=== PATIENT | male | born 1940 | race Caucasian/White ===

== ENCOUNTER 2016-05-17 10:30 | Inpatient (IN) ==
[2016-05-25 13:05] LABS: Basophils # (Auto) 0 K/mcL (0.0-0.3); Basophils % (Auto) 0.6 % (0.0-2.0); Eosinophils # (Auto) 0.2 K/mcL (0.0-0.7); Eosinophils % (Auto) 2.2 % (0.0-7.0); Granulocytes % (Auto) 67.1 % (38.0-78.0); Lymphocytes # (Auto) 1.4 K/mcL (1.5-4.8); Lymphocytes % (Auto) 20.8 % (15.5-49.0); Mean Cell Volume 94.2 fL (80.0-100.0); Mean Corpuscular HGB Conc 35.3 g/dL (31.0-36.0); Mean Corpuscular Hemoglobin 33.2 pg (26.0-34.0); Monocytes # (Auto) 0.6 K/mcL (0.1-0.9); Monocytes % (Auto) 9.3 % (1.0-9.0); Platelet Count 207 K/mcL (140-440); RBC 4.95 M/mcL (4.50-5.90); Red Cell Distribution Width 12.2 % (11.5-14.5)
[2016-05-25 13:28] LABS: Blood Urea Nitrogen 23 mg/dl (8-23)
[2016-05-25 15:29] LABS: Appearance,Urine CLEAR; Bacteria,Urine 0 /hpf (0); Bilirubin,Urine NEG (NEG); Color,Urine YELLOW; Glucose,Urine (UA) NEGATIVE (NEG); Leukocyte Esterase,Urine NEG /uL (NEG); Mucus,Urine FEW /hpf (0); Nitrate,Urine NEG (NEG); Protein,Urine 100 mg/dL (NEG); Specific Gravity,Urine 1.014 (1.000-1.035); Urine Blood NEG mg/dL (<0.03); Urine RBC 2 /hpf (0-1); Urine Squamous Epithelial Cell 0 /hpf (0-4); Urine Transitional Epi Cells < 1 /hpf (0-2); Urine WBC 0 /hpf (0-4); Urobilinogen,Urine NEG (NEG)
[2016-05-31] MEDS ORDERED: oxyCODONE 10 MG TAB.ER.12H PO SCH (05:00)
[2016-05-31] MEDS ORDERED: CELECOXIB 200 MG CAPSULE PO SCH (05:00)
[2016-05-31] MEDS ORDERED: PREGABALIN 150 MG CAPSULE PO SCH (05:00)
[2016-05-31] MEDS ORDERED: CLINDAMYCIN 900 MG in DEXTROSE 5% IN WATER 50 ML IV SCH (06:30)
[2016-05-31] MEDS ORDERED: ONDANSETRON 4 MG/2 ML VIAL IV ONE (09:30)
[2016-05-31] MEDS ORDERED: PROPOFOL 200 MG/20 ML VIAL IV ONE (09:30)
[2016-05-31] MEDS ORDERED: PHENYLEPHRINE 10 MG/ML VIAL IV ONE (09:30)
[2016-05-31] MEDS ORDERED: GLYCOPYRROLATE 0.2 MG/ML VIAL IV ONE (09:30)
[2016-05-31] MEDS ORDERED: LIDOCAINE HCL/PF 100 MG/5 ML SYRINGE IV ONE (09:30)
[2016-05-31] MEDS ORDERED: MIDAZOLAM 5 MG/5 ML VIAL IV ONE (09:30)
[2016-05-31] MEDS ORDERED: TRANEXAMIC ACID 1,000 MG/10 ML VIAL IV ONE (09:30)
[2016-05-31] MEDS ORDERED: KETAMINE 100 MG/ML ML IV ONE (09:30)
[2016-05-31] MEDS ORDERED: GENTAMICIN SULFATE 800 MG/20 ML VIAL IR ONE (09:58)
[2016-05-31] MEDS ORDERED: IPRATROPIUM/ALBUTEROL 3 ML AMPUL.NEB NEB PRN (10:36)
[2016-05-31] MEDS ORDERED: METHOCARBAMOL 1,000 MG/10 ML VIAL IV PRN (10:36)
[2016-05-31] MEDS ORDERED: MEPERIDINE 25 MG/ML SYRINGE IV PRN (10:36)
[2016-05-31] MEDS ORDERED: PROMETHAZINE 25 MG/ML VIAL IV PRN ×2 (10:36→11:07)
[2016-05-31] MEDS ORDERED: diphenhydrAMINE 50 MG/ML VIAL IV PRN (10:36)
[2016-05-31] MEDS ORDERED: LABETALOL HCL 20 MG/4 ML SYRINGE IV PRN (10:36)
[2016-05-31] MEDS ORDERED: BENZOCAINE/MENTHOL 1 LOZENGE PO PRN ×2 (10:36→11:07)
[2016-05-31] MEDS ORDERED: fentaNYL 100 MCG/2 ML VIAL IV PRN (10:36)
[2016-05-31] MEDS ORDERED: LACTATED RINGERS 1,000 ML IV SCH (10:45)
--- NOTE | 2016-05-31 11:06 | Brief Operative Note ---
Date of procedure: 05/31/16 Pre-op diagnosis: right hip oa Post-op diagnosis: same Procedure: right total hip arthroplasty Grafts/Implants: Yes Anesthesia: spinal Complications: none Surgeon: [facility] Social Worker: Ba Burrows Estimated blood loss (cc): 150 Specimens Removed/Pathology: none sent Condition: stable Disposition: PACU
[2016-05-31] MEDS ORDERED: BISACODYL 10 MG SUPP.RECT PR PRN (11:07)
[2016-05-31] MEDS ORDERED: FLEETS ADULT ENEMA PR PRN (11:07)
[2016-05-31] MEDS ORDERED: ONDANSETRON ODT 4 MG TABLET SL PRN (11:07)
[2016-05-31] MEDS ORDERED: POLYETHYLENE GLYCOL 3350 17 GM PACKET PO PRN (11:07)
[2016-05-31] MEDS ORDERED: MAGNESIUM HYDROXIDE 30 ML ORAL.SUSP PO PRN (11:07)
[2016-05-31] MEDS ORDERED: TRANEXAMIC ACID 1,000 MG/10 ML VIAL IV SCH (11:07)
[2016-05-31] MEDS ORDERED: ONDANSETRON 4 MG/2 ML VIAL IV PRN (11:07)
[2016-05-31] MEDS ORDERED: ceFAZolin 1 GM VIAL IV SCH (11:15)
--- NOTE | 2016-05-31 12:18 | XRay Report ---
CLINICAL INFORMATION: Postop total hip prostheses COMPARISON: None. FINDINGS: Right total hip prostheses is anatomically aligned. Both SI and left hip joint are normal with alignment. Soft tissue swelling over the surgical site seen - as expected. IMPRESSION: Negative Interpreted and Authenticated by: Tre Cheng 05/31/16
--- NOTE | 2016-05-31 12:22 | Operative Note ---
DATE OF OPERATION: 05/31/2016 PREOPERATIVE DIAGNOSIS: Degenerative joint disease, right hip. POSTOPERATIVE DIGNOSIS: Degenerative joint disease, right hip. PROCEDURE: Right total hip arthroplasty. SURGEON: Nadiya Amanda M.D. NUTRITIONAL SERVICES HOST SURGEON: Ba Burrows PA-C. ANESTHESIA: Spinal with LMA assist. ESTIMATED BLOOD LOSS: 150 mL. COMPLICATIONS: None noted. SPECIMENS REMOVED: None. DRAINS: None. IMPLANTS: DePuy Malvern Gription acetabular shell 58 mm OD; DePuy Merritt Hole Eliminator PS; DePuy Malvern Altrx polyethylene acetabular liner, lipped 36 x 58 mm; DePuy Tri-Lock BPS femoral stem with Gription size 8 high offset; DePuy Biolox delta ceramic femoral head +5, 36 mm diameter. INDICATIONS: The patient has had a longstanding history of worsening pain in the hip that has failed conservative treatment. Radiographs have confirmed advanced degenerative joint disease. After a long discussion about treatment options, the patient elected to proceed with a hip arthroplasty. The risks and benefits were discussed with the patient in detail including, but not limited to, the risks of anesthesia, problems with the heart or lungs related to anesthesia, infection, compromise or injury to the nerves and blood vessels, deep venous thrombosis, pulmonary embolism, pneumonia, continued pain after surgery, worsening pain or symptoms after surgery, swelling, loss of motion, instability, leg length discrepancy, and need for repeat surgery. DESCRIPTION OF PROCEDURE: The patient was seen in pre-anesthesia waiting room where all questions were answered and the correct side and site were identified and marked. The patient was then brought to the operating room and administered the anesthetic and given pre-operative antibiotics. A time-out was then called. The patient was placed in the lateral decubitus position with all prominences well padded using the [place]on frame and the extremity was prepped and draped in the usual sterile fashion. Anesthesia gave the patient 1 gm of tranexamic acid via an intravenous route. A standard posterior approach was made. We dissected through the skin and subcutaneous tissue to the deep fascia. The deep fascia was split in line with the incision and a Charnley retractor was placed. We exposed, tagged, and incised the short external rotators and piriformis tendon and retracted them posteriorly to help protect the sciatic nerve which was palpated throughout the case. We then performed a T-capsulotomy and tagged the capsule edges. Prior to dislocating the hip, we set a length and offset gauge from a Steinmann pin in the iliac wing to a georgette on the greater trochanter. The hip was then dislocated and a femoral neck osteotomy was performed to the pre-surgical templated level off the lesser trochanter. The head was removed and sized. We next turned our attention to the acetabulum. Retractors were placed for optimal visualization. A complete labral excision was performed. The capsule was preserved for later closure. We began reaming using anatomic landmarks with the DePuy Malvern acetabular system. We medialized the cup and reamed up to provide good fill and coverage of the trial. When the trial was stable and appropriately positioned with approximately 20 degrees of anteversion and 45 degrees of abduction, we impacted the DePuy Malvern cup and placed a cancellous screw in the posterior-superior quadrant. Osteophytes were removed from around the shell. We placed the trial liner and turned our attention to the femur. We placed retractors for visualization, internally rotated the femur, and established intramedullary access. We broached using the DePuy Tri-Lock stem to a stable platform medial, lateral, and rotationally with the appropriate version. We then performed a calcar reaming off the broach. Trials were then placed and optimized for leg length and stability. We used the leg length and offset guide to confirm our trials. Best stability, length, and offset characteristics were obtained with these sizes. We removed all trials and impacted the polyethylene acetabular liner in a standard fashion after a thorough irrigation. We then impacted the femoral stem to its broached location and placed the head. Final reduction was performed. Again, good stability, leg length, and offset characteristics were noted. We irrigated with three liters of antibiotic saline. We closed the capsule with #2 FiberWire. We placed a deep drain and closed the fascia with a combination of looped #0 Maxon and #0 Vicryl. We closed the subcutaneous tissue and skin in layers out to fabian in the skin. A sterile pressure dressing and abduction wedge was applied. All needle and sponge counts were correct. The patient was transferred to the recovery room in stable condition. Rafia Job ID: [id number] Doc ID: [id number] Nadiya Amanda MD
[2016-05-31] MEDS: 0.9 % SODIUM CHLORIDE 1,000 ML IV SCH ×3 (12:29→22:14)
[2016-05-31] MEDS: 0.9 % SODIUM CHLORIDE 10 ML SYRINGE IV SCH ×2 (12:30→22:13)
[2016-05-31] MEDS ORDERED: KETOROLAC 15 MG/ML VIAL IV PRN (12:37)
[2016-05-31] MEDS ORDERED: METHOCARBAMOL 750 MG TABLET PO PRN (12:37)
[2016-05-31] MEDS ORDERED: HYDROmorphone 2 MG/ML SYRINGE IV PRN (12:37)
[2016-05-31] MEDS: HYDROcodone/APAP 10/325MG TABLET PO PRN ×3 (16:09→20:59)
[2016-05-31] MEDS: CLINDAMYCIN 900 MG in DEXTROSE 5% IN WATER 50 ML IV SCH (17:10)
[2016-05-31] MEDS: DOCUSATE SODIUM 100 MG CAPSULE PO SCH (20:37)
[2016-05-31] MEDS: ASPIRIN 325 MG ENTERIC COATED TABLET PO SCH (20:38)
[2016-05-31] MEDS ORDERED: SENNOSIDES 1 TABLET PO SCH (21:00)
[2016-06-01] MEDS: CLINDAMYCIN 900 MG in DEXTROSE 5% IN WATER 50 ML IV SCH (00:36)
[2016-06-01] MEDS: HYDROcodone/APAP 10/325MG TABLET PO PRN ×2 (03:04→12:29)
[2016-06-01] MEDS: 0.9 % SODIUM CHLORIDE 1,000 ML IV SCH (04:43)
[2016-06-01] MEDS: 0.9 % SODIUM CHLORIDE 10 ML SYRINGE IV SCH (04:43)
[2016-06-01] MEDS ORDERED: TAMSULOSIN 0.4 MG CAPSULE PO ONE (07:17)
--- NOTE | 2016-06-01 07:22 | Discharge Summary ---
Providers - Providers Patient information: Note initiated : 06/01/16 at 7:20 am Service Date, if different from initiated Date: [] Patient: Jon Tolbert 75 y/o M admitted on 05/31/16 for Left Total Knee Arthroplasty. Chief Complaint: [] Date of admission: 05/31/16 Discharge date: 06/01/16 Attending physician: Tre Amanda Hospitalization Hospital course: Jabier had worsening pain in the hip that failed conservative treatment. Radiographs confired advanced degenerative joint disease. He elected to proceed with surgery. He tolerated surgery well. Vital signs remained stable after the surgery. PO day 1 he was having no pain and was reday for discharge home. He was ambulating greater than 300 [address]. He was having issues urinating so I did give him Flomax 0.4 mg, 1 tablet, which did help him start urinating. He denied calf pain, chest pain, SOB. Discharge diagnosis: right total hip Reason for admission: right degenerative joint disease Exam - Exam Incision healing: Yes Incision draining: No Incision red: No Incision swollen: No Incision inflamed: No Clean and dry: Yes Weight bearing status: as tolerated Ortho Discharge - CARMELO - Patient Instructions Diet: Regular Diet Activity: ambulate with assistive device, weight bearing as tolerated Total Hip Protocol: Follow activity instructions as provided by Physical Therapy. Dressing Care: May shower in 2 days - Follow Up Plan Disposition: Home, Self-Care Prognosis: Good Rehab Potential: Good I certify that the patient requires SNF services: No Overall status at discharge: patient is progressing back to baseline - Orders For Discharge Prescriptions: Aspirin [Ecotrin] 325 mg PO BID #60 tab.ec Docusate Sodium [Colace] 100 mg PO BID #30 capsule HYDROcodone/APAP 10/325MG [[place] 10/325Mg] 1 - 2 tab PO Q4HP PRN #60 tablet PRN Reason: Pain Pending Studies Resuscitation Status Full Code Diet Regular Diet Start MonMay 31 Lunch Acetaminophen/Hydrocodone Bitart ([place] 10/325mg) 0 tab PO Q4HP PRN PRN Reason: Pain Last Admin: 06/01/16 03:04 Dose: 1 tab Admin: 05/31/16 20:59 Dose: 1 tab Admin: 05/31/16 17:10 Dose: 1 tab Admin: 05/31/16 16:09 Dose: 1 tab Aspirin (Ecotrin) 325 mg PO BID [facility] Last Admin: 05/31/16 20:38 Dose: 325 mg Docusate Sodium (Colace) 100 mg PO BID [facility] Last Admin: 05/31/16 20:37 Dose: 100 mg Sodium Chloride (Sodium Chloride 0.9%) 1,000 mls @ 125 mls/hr IV .Q8H [facility] Last Admin: 06/01/16 04:43 Dose: Not Given Admin: 05/31/16 22:14 Dose: 125 mls/hr Infusion: 05/31/16 20:29 Dose: 125 mls/hr Admin: 05/31/16 19:29 Dose: Not Given Admin: 05/31/16 12:29 Dose: 125 mls/hr Ketorolac Tromethamine (Toradol) 15 mg IV Q6HP PRN PRN Reason: Pain Stop: 06/02/16 12:36 Last Admin: 06/01/16 03:05 Dose: 15 mg Senna (Senokot) 2 tab PO HS [facility] Last Admin: 05/31/16 20:38 Dose: 2 tab Sodium Chloride (Saline Flush) 10 ml IV Q8 [facility] Last Admin: 06/01/16 04:43 Dose: Not Given Admin: 05/31/16 22:13 Dose: Not Given Admin: 05/31/16 12:30 Dose: Not Given Shift Summary 06/01/16 03:13 Shift Summary by Vicente Nelson Pt a&o x4, VSS on 2L o2. Pt is up with FWW and SBA to bathroom. Pt unable to void at this time and was BS for 178ml at 2300 and again at 0300 for 545ml's. Straight cathed for 500mls. PT has had minimal c/o pain and has been medicated with 1 norco x2 and tordol x1. DRSG to right hip CDI. CMS intact. Will attempt to ween off oxygen at 0400. IV in LFA running MIV. PT would like to DC today pending Doctors approval. Will update further at bedside. Initialized on 06/01/16 03:13 - END OF NOTE
[2016-06-01] MEDS: ASPIRIN 325 MG ENTERIC COATED TABLET PO SCH (08:30)
[2016-06-01] MEDS: DOCUSATE SODIUM 100 MG CAPSULE PO SCH (08:30)
[2016-06-01] MEDS ORDERED: CYANOCOBALAMIN (VITAMIN B-12) 500 MCG TABLET PO SCH (09:00)
[2016-06-01] MEDS ORDERED: MULTIVIT,THER IRON,CA,FA & MIN 1 TABLET PO SCH (09:00)
[2016-06-01] MEDS ORDERED: LOSARTAN 25 MG TABLET PO SCH (09:00)
[2016-06-01] MEDS ORDERED: FLU VACC QS2016-17 36MOS UP/PF 60 MCG/0.5 ML SYRINGE IM ONE (09:00)
== END 2016-06-01 16:00 | disposition home or self-care (01) | DRG 470 ==
LOC: MEDSUR 05-31 06:50
PROVIDERS: ADMIT Orthopaedic Surgery Sports Medicine; ATTEND Orthopaedic Surgery Sports Medicine